=== PATIENT | female | born 1940 | race Caucasian/White ===

== ENCOUNTER 2022-05-07 13:18 | Emergency (ER) | payer OTHER ==
[2022-05-07 14:30] VITALS: TEMP 98.8; BMI 23.0
[2022-05-07] MEDS ORDERED: LIDOCAINE 5% TOPICAL PATCH TP ONE (15:40)
[2022-05-07] MEDS ORDERED: ACETAMINOPHEN 325 MG TABLET (FP) PO ONE (15:41)
[2022-05-07] MEDS ORDERED: LIDOCAINE 5% TOPICAL PATCH ONE (16:14)
[2022-05-07] MEDS ORDERED: ACETAMINOPHEN 325 MG TABLET (FP) ONE (16:14)
[2022-05-07 19:23] VITALS: BP 115/65; PULSE 72
[2022-05-07] MEDS ORDERED: LIDOCAINE PATCH REMOVAL MC SCH (22:00)
== END 2022-05-07 19:39 | disposition home or self-care (01) ==
LOC: JER 13:18
DX: S49.92XA Unspecified injury of left shoulder and upper arm, initial encounter (principal); W01.0XXA Fall on same level from slipping, tripping and stumbling without subsequent striking against object, initial encounter
CPT/HCPCS: 70450-TC; 71045-TC-FY; 71101-TC-LT-FY; 72125-TC; 72131-TC; 73030-TC-LT-FY; 73060-TC-LT-FY; 93005; 93010; 99285-25